=== PATIENT | female | born 1975 | race African-American/Black ===

== ENCOUNTER 2018-05-08 15:28 | Emergency (ER) | payer MEDICAID ==
[~2018-05-08] VITALS: Ht 165.1 cm; Wt 64.0 kg
[2018-05-08] MEDS ORDERED: ONDANSETRON HCL 4MG/2ML INJ IV STA (17:27)
[2018-05-08] MEDS ORDERED: SODIUM CHLORIDE 0.9% 1,000 ML IV ONE (17:27)
[2018-05-08] MEDS ORDERED: FAMOTIDINE 20MG/2ML VIAL IV ONE (17:30)
[2018-05-08] MEDS ORDERED: MORPHINE SULFATE 4 MG/ML CPJ (NOT FOR IM USE) IV ONE ×2 (17:30→19:45)
[2018-05-08] MEDS ORDERED: MORPHINE SULFATE 10 MG/ML CPJ IV NR ×2 (18:00→20:15)
[2018-05-08 18:12] LABS: BASOPHILS % 0.6 % (0.0-2.0); EOSINOPHILS % 0.1 % (0.0-5.0); HEMATOCRIT. 31.3 % (36.0-48.0); HEMOGLOBIN. 9.5 g/dL (12.0-16.0); LYMPHOCYTES % 22.9 % (20.0-50.0); MEAN CORPUSCULAR HEMOGLOBIN 21.8 pg (28.0-32.0); MEAN CORPUSCULAR VOLUME 71.6 fL (81.0-99.0); MEAN PLATELET VOLUME 7.7 fl (7.4-10.4); MONOCYTES % 6.6 % (2.0-8.0); NEUTROPHILS % 69.8 % (40.0-76.0); PLATELET 527 x1000/uL (130-400); RED BLOOD CELL COUNT 4.37 mill/uL (4.2-5.4); RED CELL DISTRIBUTION WIDTH 20.7 % (11.6-14.6)
[2018-05-08 18:19] LABS: CHLORIDE 103 mEq/L (98-107)
[2018-05-08 18:30] LABS: INR 1.1; PROTHROMBIN TIME 10.7 sec (9.1-11.1)
[2018-05-08 19:03] LABS: CLARITY URINE CLOUDY (CLEAR); COLOR URINE YELLOW (YELLOW); KETONES URINE 4+ (NEGATIVE); LEUKOCYTE ESTERASE URINE 2+ (NEGATIVE); NITRITE URINE NEGATIVE (NEGATIVE); OCCULT BLOOD URINE 2+ (NEGATIVE); PH URINE 5.5 (4.5-8.0); PROTEIN URINE NEGATIVE (NEGATIVE); SPECIFIC GRAVITY URINE 1.023 (1.005-1.030); UROBILINOGEN URINE 0.2 E.U./dL (0.2-1.0)
[2018-05-08 19:15] LABS: *AMPHETAMINES SCREEN URINE NEGATIVE (NEGATIVE); *BARBITURATES SCREEN URINE NEGATIVE (NEGATIVE); *COCAINE SCREEN URINE NEGATIVE (NEGATIVE); METHADONE URINE SCREEN NEGATIVE (NEGATIVE); OPIATES URINE SCREEN NEGATIVE (NEGATIVE)
[2018-05-08 19:16] LABS: CANNABINOID URINE SCREEN NEGATIVE (NEGATIVE); PHENCYCLIDINE URINE SCREEN NEGATIVE (NEGATIVE)
[2018-05-08 19:32] LABS: *BENZODIAZEPINES SCREEN URINE PRESUMTIVE POSITIVE (NEGATIVE)
[2018-05-08 21:40] LABS: HCG SCREEN NEGATIVE
[2018-05-08] MEDS ORDERED: KETOROLAC 30MG/ML VIAL IV ONE (23:15)
[2018-05-08 23:51] VITALS: BP 138/68
== END 2018-05-09 00:03 | disposition home or self-care (01) ==
LOC: ER 15:28
DX: N39.0 Urinary tract infection, site not specified (principal); K44.9 Diaphragmatic hernia without obstruction or gangrene; K21.9 Gastro-esophageal reflux disease without esophagitis
CPT/HCPCS: 36415; 71045; 74176; 76705; 80053; 80305; 81003; 83690; 84484; 84703; 85025; 85610; 93005; 96361; 96374; 96375; 96376; 99284; J1885; J2270; J2405; J3490; J7030

== ENCOUNTER 2021-03-17 12:53 | Emergency (ER) | payer MEDICAID, OTHER ==
[~2021-03-17] VITALS: Ht 160 cm; Wt 75.0 kg
[2021-03-17] MEDS ORDERED: ACETAMINOPHEN 325MG TABLET PO ONE (13:45)
[2021-03-17] MEDS ORDERED: IBUPROFEN 600MG TABLET PO ONE (13:45)
[2021-03-17] MEDS ORDERED: TOPUD MT (14:56)
[2021-03-17] MEDS ORDERED: NAPR-1176 MT (15:13)
[2021-03-17 15:19] VITALS: BP 117/85
== END 2021-03-17 15:20 | disposition home or self-care (01) ==
LOC: ER 12:53
DX: S63.691A Other sprain of left index finger, initial encounter (principal); X58.XXXA Exposure to other specified factors, initial encounter; Y93.89 Activity, other specified; Y92.89 Other specified places as the place of occurrence of the external cause; J45.909 Unspecified asthma, uncomplicated; K21.9 Gastro-esophageal reflux disease without esophagitis
CPT/HCPCS: 73130; 81025; 99283

== ENCOUNTER 2021-05-20 08:15 | Emergency (ER) | payer MEDICAID ==
[~2021-05-20] VITALS: Ht 160 cm; Wt 79.0 kg
[~2021-05-20 08:15] MED LIST: NAPR-1176 MT; TOPUD MT
[2021-05-20 08:19] VITALS: BP 119/59
[2021-05-20 09:00] LABS: CLARITY URINE CLOUDY (CLEAR); COLOR URINE YELLOW (YELLOW); KETONES URINE NEGATIVE (NEGATIVE); LEUKOCYTE ESTERASE URINE 3+ (NEGATIVE); NITRITE URINE NEGATIVE (NEGATIVE); OCCULT BLOOD URINE 1+ (NEGATIVE); PROTEIN URINE TRACE (NEGATIVE); SPECIFIC GRAVITY URINE 1.025 (1.005-1.030)
[2021-05-20] MEDS ORDERED: PYR200 MT (09:38)
[2021-05-20] MEDS ORDERED: SULF1TAB48 MT (09:38)
== END 2021-05-20 10:17 | disposition home or self-care (01) ==
LOC: ER 08:15
DX: N39.0 Urinary tract infection, site not specified (principal); J45.909 Unspecified asthma, uncomplicated; K21.9 Gastro-esophageal reflux disease without esophagitis
CPT/HCPCS: 81003; 81025; 99283

== ENCOUNTER 2021-07-03 18:58 | Emergency (ER) | payer MEDICAID ==
[~2021-07-03] VITALS: Ht 157.5 cm; Wt 76.0 kg
[~2021-07-03 18:58] MED LIST changes: +PYR200 MT; +SULF1TAB48 MT
[2021-07-03] MEDS ORDERED: ALBUTEROL (0.083%) 2.5MG/3ML NEB HHN ONE ×2 (19:15→22:00)
[2021-07-03] MEDS ORDERED: ACETAMINOPHEN 325MG TABLET PO NR (19:35)
[2021-07-03] MEDS ORDERED: ALBUTEROL (0.083%) 2.5MG/3ML NEB HHN NR (21:15)
[2021-07-03] MEDS ORDERED: PREDNISONE 20MG TABLET PO ONE (22:00)
[2021-07-03] MEDS ORDERED: P20 MT (22:46)
[2021-07-03] MEDS ORDERED: T3 PO (22:46)
[2021-07-03] MEDS ORDERED: ALBU6.7H9 INH (22:46)
[2021-07-03 23:00] VITALS: BP 148/78
== END 2021-07-03 23:02 | disposition home or self-care (01) ==
LOC: ER 18:58
DX: J40 Bronchitis, not specified as acute or chronic (principal); I10 Essential (primary) hypertension; Z20.822 Contact with and (suspected) exposure to COVID-19; Z88.1 Allergy status to other antibiotic agents; Z13.9 Encounter for screening, unspecified
CPT/HCPCS: 71045; 87426; 93005; 94640; 99285; J7512; Z7610